=== PATIENT | female | born 1965 | race Caucasian/White ===

== ENCOUNTER 2020-10-19 09:35 | Emergency (ER) | payer OTHER | END 2020-10-19 11:50 | disposition left against medical advice (07) | LOC: ER1 09:35 | DX: R50.9 Fever, unspecified (principal); R05 Cough; E10.9 Type 1 diabetes mellitus without complications; I10 Essential (primary) hypertension; J45.909 Unspecified asthma, uncomplicated; Z88.0 Allergy status to penicillin; F17.210 Nicotine dependence, cigarettes, uncomplicated; Z79.4 Long term (current) use of insulin; Z79.899 Other long term (current) drug therapy | CPT/HCPCS: 99283 ==

== ENCOUNTER → 2021-11-29 | Outpatient (CLI) | payer OTHER | LOC: LAB 14:23 | DX: E89.0 Postprocedural hypothyroidism (principal) | CPT/HCPCS: 36415; 84443 ==